=== PATIENT | female | born 1995 | race Caucasian/White ===

== ENCOUNTER 2017-03-21 23:39 | Emergency (ER) | payer BC ==
[~2017-03-21] VITALS: Ht 154.9 cm; Wt 54.0 kg
[2017-03-22 00:44] LABS: HEMATOCRIT 39.5 % (36.0-46.0); MCHC 32.9 G/DL (30.0-36.0); MEAN PLAT.VOLUME 9.8 uM^3 (9.5-12.4); PLATELET COUNT 251 K/uL (156-360); RED BLOOD COUNT 4.49 M/uL (3.80-5.20); WHITE BLOOD COUNT 7.7 K/uL (4.1-10.2)
[2017-03-22 00:55] LABS: CHLORIDE 108 mEq/L (99-109); POTASSIUM 3.7 mEq/L (3.7-5.4); SODIUM 140 mEq/L (136-147)
[2017-03-22 00:57] LABS: GLUCOSE 83 mg/dL (70-99)
[2017-03-22 00:58] LABS: ANION GAP 10 MEQ/L (2-14)
[2017-03-22 00:59] LABS: TOTAL BILIRUBIN 0.3 mg/dL (0.0-1.0)
[2017-03-22 01:01] LABS: ALKALINE PHOSPHATASE 40 IU/L (3-129)
[2017-03-22 01:02] LABS: UREA NITROGEN (BUN) 11 mg/dL (9-23)
[2017-03-22 01:07] LABS: GFR ESTIMATE (CALCULATED) > 59 mL/min/
[2017-03-22 01:10] LABS: QUANTITATIVE HCG < 4.0 MIU/ML
[2017-03-22 01:32] LABS: ADD MIUA? YES; BILIRUBIN NEGATIVE; BLOOD NEGATIVE; COLOR YELLOW ((YELLOW)); GLUCOSE (STRIP) NEGATIVE; KETONES 20; LEUKOCYTES TRACE; NITRITE NEGATIVE; PROTEIN (STRIP) 100; SPECIFIC GRAVITY 1.031 (1.000-1.030); UROBILINOGEN 0.2 MG/DL (0.2-1.0)
[2017-03-22 01:44] LABS: BACTERIA 1+ /HPF; EPITHELIAL CELLS 1+ /HPF; MUCUS 4+ /LPF; RED BLOOD CELLS 0-5 /HPF (0-5); UCUL ADDED? NO
[2017-03-22] MEDS ORDERED: BENTYL20 MG PO (04:52)
[2017-03-22] MEDS ORDERED: MACRODANTIN100 MG PO (04:52)
[2017-03-22] MEDS ORDERED: ZOFRAN8 MG PO (04:52)
[2017-03-22 05:43] VITALS: BP 115/85
== END 2017-03-22 05:45 | disposition home or self-care (01) ==
LOC: EME 23:39
DX: N30.90 Cystitis, unspecified without hematuria (principal); R11.2 Nausea with vomiting, unspecified; R19.7 Diarrhea, unspecified; F31.9 Bipolar disorder, unspecified
CPT/HCPCS: 80053; 81003; 84702; 85027; 99281; 99284